=== PATIENT | female | born 1950 | race Caucasian/White ===

== ENCOUNTER → 2022-09-17 13:02 | Outpatient (BNVA) | payer OTHER, SELFPAY | PROVIDERS: PCP Family Medicine; Visit Provider Student in an Organized Health Care Education/Training Program | DX: M35.3 Polymyalgia rheumatica (principal); M85.89 Other specified disorders of bone density and structure, multiple sites | CPT/HCPCS: 99202 ==

== ENCOUNTER → 2022-11-19 11:13 | Outpatient (BNVA) | payer OTHER, SELFPAY | PROVIDERS: PCP Family Medicine; Visit Provider Student in an Organized Health Care Education/Training Program | DX: M35.3 Polymyalgia rheumatica (principal); M85.89 Other specified disorders of bone density and structure, multiple sites; E11.9 Type 2 diabetes mellitus without complications | CPT/HCPCS: 99212 ==

== ENCOUNTER 2023-04-05 15:42 | Outpatient (AMB) | payer OTHER, SELFPAY ==
[2023-04-05 15:46] VITALS: BP 114/62; PULSE 77; TEMP 36.5; O2SAT 98; BMI 27.2
--- NOTE | 2023-04-05 15:46 | A.OFFVIS_ITS ---
Intake Vital Signs 04/05/23 15:46 Height 5 ft 4.5 in Weight 160 lb 11.472 oz BMI 27.2 BP 114/62 Blood Pressure Location Rt brachial Position Sitting Pulse 77 Pulse Source Pulse Oximeter Temp 97.7 F Temp Source Skin Pulse Oximetry (%) 98 Intake Visit Reasons: PMR Intake Note: Pt seen today for PMR follow up, states PMR in remission, c/o bl hand stiffness and swelling. Ecological Economist Required: No Accompanied by: Self / Same As Patient Allergies zoster vaccine live [From Zostavax (PF)] Allergy (Intermediate, Verified 04/05/23 15:48) redness,swelling Medication List - Last Reconciled 04/05/23 by Teri Ospina MD acetaminophen (Tylenol Extra Strength) 500 mg PO Q6H PRN alendronate 70 mg PO QWEEK atorvastatin 10 mg PO DAILY cholecalciferol (vitamin D3) 25 mcg PO DAILY losartan 25 mg PO DAILY metformin ER 500 mg PO DAILY pyridoxine (vitamin B6) 50 mg PO DAILY triamterene-hydrochlorothiazid 37.5-25 mg 1 cap PO DAILY HPI HPI Comments History of Present Illness Details 72-year-old female with PMR returns for follow-up. She has tapered her prednisone by 1 mg every month to off. Prednisone course has been completed by the end of January 2023. She has no recurrence of PMR symptoms. Over the last 1-2 months she has been having difficulty in bending her right thumb. She also gets pain in both knees when she stands up after sitting down. Initial history: This is a 72-year-old female with a past medical history of hypertension, dyslipidemia, migraines who presents for evaluation of polymyalgia rheumatica. The condition started around [place] time of 2020 with the patient noticing bilateral knee, hips pain and stiffness. She was eventually evaluated by her PCP and her labs showed high inflammatory markers she was referred to dam attendant Dr. Patel and was started on prednisone 20 mg her prednisone was slowly tapered down until 10 mg daily and then he was tapered by 1 mg every month. She is currently on 6 mg of prednisone daily. Patient reports significant improvement in her overall symptoms. She denies any joint pain or stiffness today. Patient also states that she had a bone density scan which showed osteopenia and she was started on alendronate by her PCP. Patient also mentions that she has a long history of ocular migraines which are usually worse in the summer. Last episode was in July. She denies any new headaches. She is aware of joint cell arthritis symptoms and she denies having any symptoms suggestive of it, such as new headaches, blurry vision, fevers, fatigue. [facility] Medical History Adjustment disorder with mixed emotional features Astigmatism CTS (carpal tunnel syndrome) Hearing loss Hypertension Impaired fasting glucose Migraine Mixed hyperlipidemia Myopia Osteopenia Presbyopia Surgical History H/O stapedectomy History of carpal tunnel surgery History of decompression of median nerve Family History Sister Hx of CABG Atrial fibrillation Son Heart disease Father Myocardial infarct Mother Osteopenia Social History Household Members: Spouse Alcohol intake: never Patient Tobacco Use Status: Never used Tobacco Current occupational status: employed 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 Review of Systems [facility] [place] Reports arthralgias, Reports joint swelling, Reports limited range of motion and Reports stiffness Physical Exam Vital Signs: Last Vital Signs Temp 97.7 F 04/05/23 15:46 Pulse 77 04/05/23 15:46 BP 114/62 04/05/23 15:46 Pulse Ox 98 04/05/23 15:46 BMI result Body Mass Index 27.2 Const General: cooperative, healthy appearing, comfortable and no acute distress Nutritional Appearance: average body habitus Orientation/consciousness: patient oriented x3 Limitations: no limitations HEENT Other: No temporal area tenderness Head: Yes normocephalic and Yes atraumatic Mouth: moist mucous membranes Resp Effort & Inspection: normal respiratory effort and able to speak in complete sentences Auscultation: clear to auscultation bilaterally Cardio Rate: regular rate Rhythm: regular rhythm GI Inspection: No distended Palpation (GI): Soft to palpation and nontender Skin General skin exam: no rashes or lesions noted Neuro General: patient oriented x3 Extrem Other: Mild osteoarthritic changes of both hands Right 1st MCP joint swelling and tenderness Significantly limited right thumb IP flexion Normalr range of motion of both shoulders Normal range of motion of both knees without pain. Bilateral knee crepitus Results Reviewed Results Reviewed: Labs from December of 2021 RF/CCP/TEN all negative Upper limit of normal of CRP at this lab is 9 Labs in November 2021 CRP 20.4 sed rate 30 Labs December 2021: CRP 51, ESR 37 Labs May 2022 CRP <2, sed rate normal Labs 09/10/2022 : CRP 11 sed rate 10 Labs 11/16/2022? CBC unremarkable? ESR 9? CRP <2.0 (0-9.0) CMP unremarkable except for glucose 173 HB A1c 8.8% Assessment & Plan Assessment & Plan (1) PMR (polymyalgia rheumatica): Comment: Symptoms started and 08/2021 Diagnosed 11/2021 started on PDN. PDN tapered off 03/11 with no recurrence Code(s): M35.3 - Polymyalgia rheumatica Plan: This is a 72-year-old female presents for evaluation of polymyalgia rheumatica. Symptoms started in August 2021, bilateral knee and hips pain and stiffness, diagnosed in November 2021 with significantly elevated CRP and mildly elevated sed rate started on prednisone 20 mg daily with dramatic response. Prednisone has been slowly tapered to off 03/11 with no PMR recurrence. Patient has normal inflammatory markers. Follow-up in 5 months. Advised patient to call the office if she has recurrent PMR symptoms (2) Osteopenia: Code(s): M85.80 - Other specified disorders of bone density and structure, unspecified site Qualifiers: Osteopenia location: multiple sites Qualified Code(s): M85.89 - Other specified disorders of bone density and structure, multiple sites Plan: Was started on alendronate by PCP. Benadryl made is currently on hold due to GI symptoms (3) Trigger thumb, right thumb: Code(s): M65.311 - Trigger thumb, right thumb Plan: Likely trigger finger of right thumb. Advised patient to use [id number] Voltaren gel. She is not interested in occupational therapy. She states that she will consider consulting with her hand surgeon. (4) Bilateral primary osteoarthritis of knee: Code(s): M17.0 - Bilateral primary osteoarthritis of knee Plan: Mild, discussed conservative measures. Patient is not interested in formal physical therapy. I suggested applying Voltaren gel and doing quadriceps strengthening exercises at home. Plan I spent 32 minutes reviewing patient's chart, evaluating patient, ordering diagnostic workup, counseling patient and documenting in the chart Coding Level of Care Code Est Pt Level 4 (40543) Diagnoses PMR (polymyalgia rheumatica) M35.3 Osteopenia M85.89 Osteopenia location: multiple sites Trigger thumb, right thumb M65.311 Bilateral primary osteoarthritis of knee M17.0
== END 2023-04-05 16:15 | disposition home or self-care (01) ==
PROVIDERS: PCP Family Medicine; Visit Provider Student in an Organized Health Care Education/Training Program
DX: M35.3 Polymyalgia rheumatica (principal); M85.89 Other specified disorders of bone density and structure, multiple sites; M65.311 Trigger thumb, right thumb; M17.0 Bilateral primary osteoarthritis of knee
CPT/HCPCS: 99214

== ENCOUNTER → 2023-04-05 15:42 | Outpatient (BNVA) | payer OTHER, SELFPAY | PROVIDERS: PCP Family Medicine; Visit Provider Student in an Organized Health Care Education/Training Program | DX: M35.3 Polymyalgia rheumatica (principal); M17.0 Bilateral primary osteoarthritis of knee; M85.89 Other specified disorders of bone density and structure, multiple sites; M65.311 Trigger thumb, right thumb | CPT/HCPCS: 99212 ==

== ENCOUNTER 2023-08-30 14:23 | Outpatient (AMB) | payer OTHER, SELFPAY ==
--- NOTE | 2023-08-30 14:32 | MHC.OFFVIS ---
Intake Vital Signs 08/30/23 14:37 Height 5 ft 4.5 in Weight 149 lb 11.102 oz BMI 25.3 BP 114/56 L Blood Pressure Location Rt brachial Position Sitting Pulse 92 Pulse Source Pulse Oximeter Temp 97 F Temp Source Skin Pulse Oximetry (%) 96 Oxygen Delivery Method Room Air Intake Visit Reasons: PMR Intake Note: Patient last seen 04/05/23, presents today for follow up. Reports brenden knee clicking and neck clicking. Animal Control Supervisor Required: No Accompanied by: Self / Same As Patient Allergies zoster vaccine live [From Zostavax (PF)] Allergy (Intermediate, Verified 08/30/23 14:37) redness,swelling Medication List - Last Reconciled 08/30/23 by Teri Ospina MD acetaminophen (Tylenol Extra Strength) 500 mg PO Q6H PRN atorvastatin 10 mg PO DAILY cholecalciferol (vitamin D3) 25 mcg PO DAILY losartan 25 mg PO DAILY magnesium 200 mg PO DAILY metformin ER 500 mg PO DAILY pyridoxine (vitamin B6) 50 mg PO DAILY triamterene-hydrochlorothiazid 37.5-25 mg 1 cap PO DAILY zinc acetate 25 mg PO DAILY HPI HPI Comments History of Present Illness Details 73-year-old female with PMR returns for follow-up. She continues to do well off prednisone since 02/2023. She has not had any recurrence of PMR symptoms. She has been having some neck cracking without pain. She would have some neck pain, upper back pain and stiffness after a long day, she uses a heating pad on her neck which helps. She also has some stiffness of her knees specially when standing up after sitting down for some time. She takes a Tylenol every once in a while as needed for her generalized arthritic pains. Has been having some triggering of her right thumb but it is not particularly symptomatic. She has been following weight watchers for diabetics and has lost 11 lb since last visit. Initial history: This is a 72-year-old female with a past medical history of hypertension, dyslipidemia, migraines who presents for evaluation of polymyalgia rheumatica. The condition started around [place] time of 2020 with the patient noticing bilateral knee, hips pain and stiffness. She was eventually evaluated by her PCP and her labs showed high inflammatory markers she was referred to band top maker Dr. Patel and was started on prednisone 20 mg her prednisone was slowly tapered down until 10 mg daily and then he was tapered by 1 mg every month. She is currently on 6 mg of prednisone daily. Patient reports significant improvement in her overall symptoms. She denies any joint pain or stiffness today. Patient also states that she had a bone density scan which showed osteopenia and she was started on alendronate by her PCP. Patient also mentions that she has a long history of ocular migraines which are usually worse in the summer. Last episode was in July. She denies any new headaches. She is aware of joint cell arthritis symptoms and she denies having any symptoms suggestive of it, such as new headaches, blurry vision, fevers, fatigue. [facility] Medical History Hearing loss Astigmatism Myopia Adjustment disorder with mixed emotional features Presbyopia Impaired fasting glucose Migraine Mixed hyperlipidemia Hypertension CTS (carpal tunnel syndrome) Osteopenia Surgical History History of carpal tunnel surgery H/O stapedectomy History of decompression of median nerve Family History Sister Hx of CABG Atrial fibrillation Son Heart disease Father Myocardial infarct Mother Osteopenia Social History Household Members: Spouse Alcohol intake: never Patient Tobacco Use Status: Never used Tobacco Current occupational status: employed 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 Review of Systems [facility] [place] Reports arthralgias and Reports stiffness Physical Exam Vital Signs: Last Vital Signs Temp 97 F 08/30/23 14:37 Pulse 92 08/30/23 14:37 BP 114/56 L 08/30/23 14:37 Pulse Ox 96 08/30/23 14:37 Oxygen Delivery Method Room Air 08/30/23 14:37 BMI result Body Mass Index 25.3 Const General: cooperative, healthy appearing, comfortable and no acute distress Nutritional Appearance: average body habitus Orientation/consciousness: patient oriented x3 Limitations: no limitations HEENT Other: No temporal area tenderness Head: Yes normocephalic and Yes atraumatic Mouth: moist mucous membranes Resp Effort & Inspection: normal respiratory effort and able to speak in complete sentences Auscultation: clear to auscultation bilaterally Cardio Rate: regular rate Rhythm: regular rhythm GI Inspection: No distended Palpation (GI): Soft to palpation and nontender Skin General skin exam: no rashes or lesions noted Neuro General: patient oriented x3 Extrem Other: Mild osteoarthritic changes of both hands Right 1st MCP joint swelling and tenderness Significantly limited right thumb IP flexion Normalr range of motion of both shoulders Normal range of motion of both knees without pain. Bilateral knee crepitus Results Reviewed Results Reviewed: Labs from December of 2021 RF/CCP/TEN all negative Upper limit of normal of CRP at this lab is 9 Labs in November 2021 CRP 20.4 sed rate 30 Labs December 2021: CRP 51, ESR 37 Labs May 2022 CRP <2, sed rate normal Labs 09/10/2022 : CRP 11 sed rate 10 Labs 11/16/2022? CBC unremarkable? ESR 9? CRP <2.0 (0-9.0) CMP unremarkable except for glucose 173 HB A1c 8.8% Assessment & Plan Assessment & Plan (1) PMR (polymyalgia rheumatica): Comment: Symptoms started and 08/2021 Diagnosed 11/2021 started on PDN. PDN tapered off 03/11 with no recurrence Code(s): M35.3 - Polymyalgia rheumatica Plan: This is a 73-year-old female presents for evaluation of polymyalgia rheumatica. Symptoms started in August 2021, bilateral knee and hips pain and stiffness, diagnosed in November 2021 with significantly elevated CRP and mildly elevated sed rate started on prednisone 20 mg daily with dramatic response. Prednisone has been slowly tapered off 03/11 with no PMR recurrence. Upon evaluation today has no inflammatory symptoms. Follow-up in months. Advised patient to call the office if she has recurrent PMR symptoms (2) Trigger thumb, right thumb: Code(s): M65.311 - Trigger thumb, right thumb Plan: trigger finger of right thumb. Not particularly symptomatic currently. She will follow-up with her hand surgeon as knees (3) Bilateral primary osteoarthritis of knee: Code(s): M17.0 - Bilateral primary osteoarthritis of knee Plan: Mild, discussed conservative measures. Patient is not interested in formal physical therapy. She does quadriceps strengthening exercises at home and takes Tylenol every once in a while. Plan I spent 22 minutes reviewing patient's chart, evaluating patient, counseling patient and documenting in the chart Coding Level of Care Code Est Pt Level 4 (89749) Diagnoses PMR (polymyalgia rheumatica) M35.3 Trigger thumb, right thumb M65.311 Bilateral primary osteoarthritis of knee M17.0
[2023-08-30 14:37] VITALS: BP 114/56; PULSE 92; TEMP 36.1; O2SAT 96; BMI 25.3
== END 2023-08-30 14:53 | disposition home or self-care (01) ==
PROVIDERS: PCP Family Medicine; Visit Provider Student in an Organized Health Care Education/Training Program
DX: M35.3 Polymyalgia rheumatica (principal); M65.311 Trigger thumb, right thumb; M17.0 Bilateral primary osteoarthritis of knee
CPT/HCPCS: 99214

== ENCOUNTER → 2023-08-30 14:23 | Outpatient (BNVA) | payer OTHER, SELFPAY | PROVIDERS: PCP Family Medicine; Visit Provider Student in an Organized Health Care Education/Training Program | DX: M35.3 Polymyalgia rheumatica (principal); M65.311 Trigger thumb, right thumb; M17.0 Bilateral primary osteoarthritis of knee | CPT/HCPCS: 99212 ==

== ENCOUNTER 2024-02-29 14:51 | Outpatient (AMB) | payer OTHER, SELFPAY ==
[2024-02-29 14:53] VITALS: BP 112/58; PULSE 76; O2SAT 97; BMI 26.0
--- NOTE | 2024-02-29 14:53 | A.OFFVIS_ITS ---
Vital Signs 02/29/24 14:53 Height 5 ft 4.5 in Weight 153 lb 10.595 oz BMI 26.0 BP 112/58 L Blood Pressure Location Rt brachial Position Sitting Pulse 76 Pulse Source Pulse Oximeter Pulse Oximetry (%) 97 Oxygen Delivery Method Room Air Intake Visit Reasons: PMR Intake Note: Patient last seen 08/30/23, presents today for PMR follow up. Vp Of Marketing Required: No Accompanied by: Self / Same As Patient Allergies zoster vaccine live [From Zostavax (PF)] Allergy (Intermediate, Verified 15:00) redness,swelling Medication List - Last Reconciled 02/29/24 by Teri Ospina MD acetaminophen (Tylenol Extra Strength) 500 mg PO Q6H PRN atorvastatin 10 mg PO DAILY cholecalciferol (vitamin D3) 25 mcg PO DAILY losartan 25 mg PO DAILY magnesium 200 mg PO DAILY metformin ER 500 mg PO DAILY pyridoxine (vitamin B6) 50 mg PO DAILY triamterene-hydrochlorothiazid 37.5-25 mg 1 cap PO DAILY zinc acetate 25 mg PO DAILY HPI Comments Details: 73-year-old female with PMR returns for follow-up. She continues to do well off prednisone since 02/2023. She has not had any recurrence of PMR symptoms. She gets intermittent right-sided neck pain with certain movements. She rarely uses Tylenol or Advil as needed. Her knee pain has improved spontaneously. Initial history: This is a 72-year-old female with a past medical history of hypertension, dyslipidemia, migraines who presents for evaluation of polymyalgia rheumatica. The condition started around [place] time of 2020 with the patient noticing bilateral knee, hips pain and stiffness. She was eventually evaluated by her PCP and her labs showed high inflammatory markers she was referred to well service floor worker Dr. Patel and was started on prednisone 20 mg her prednisone was slowly tapered down until 10 mg daily and then he was tapered by 1 mg every month. She is currently on 6 mg of prednisone daily. Patient reports significant improvement in her overall symptoms. She denies any joint pain or stiffness today. Patient also states that she had a bone density scan which showed osteopenia and she was started on alendronate by her PCP. Patient also mentions that she has a long history of ocular migraines which are usually worse in the summer. Last episode was in July. She denies any new headaches. She is aware of joint cell arthritis symptoms and she denies having any symptoms suggestive of it, such as new headaches, blurry vision, fevers, fatigue. [facility] Medical History Hearing loss Astigmatism Myopia Adjustment disorder with mixed emotional features Presbyopia Impaired fasting glucose Migraine Mixed hyperlipidemia Hypertension CTS (carpal tunnel syndrome) Osteopenia Surgical History History of carpal tunnel surgery H/O stapedectomy History of decompression of median nerve Family History Sister Hx of CABG Atrial fibrillation Son Heart disease Father Myocardial infarct Mother Osteopenia Social History Household Members: Spouse Alcohol intake: never Patient Tobacco Use Status: Never used Tobacco Current occupational status: employed 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 Review of Systems [facility] Reports neck pain Musc Reports neck pain Physical Exam Vital Signs: Last Vital Signs Pulse 76 02/29/24 14:53 BP 112/58 L 02/29/24 14:53 Pulse Ox 97 02/29/24 14:53 Oxygen Delivery Method Room Air 02/29/24 14:53 BMI result Body Mass Index 26.0 Const General: cooperative, healthy appearing, comfortable and no acute distress Nutritional Appearance: average body habitus Orientation/consciousness: patient oriented x3 Limitations: no limitations HEENT Other: No temporal area tenderness Head: Yes normocephalic and Yes atraumatic Mouth: moist mucous membranes Resp Effort & Inspection: normal respiratory effort and able to speak in complete sentences Auscultation: clear to auscultation bilaterally Cardio Rate: regular rate Rhythm: regular rhythm GI Inspection: No distended Palpation (GI): Soft to palpation and nontender Skin General skin exam: no rashes or lesions noted Neuro General: patient oriented x3 Extrem Other: Mild osteoarthritic changes of both hands No active synovitis Muscle wasting of left thenar eminence Normalr range of motion of both shoulders Normal range of motion of both knees without pain. Bilateral knee crepitus Results Reviewed Results Reviewed: Labs from December of 2021 RF/CCP/TEN all negative Upper limit of normal of CRP at this lab is 9 Labs in November 2021 CRP 20.4 sed rate 30 Labs December 2021: CRP 51, ESR 37 Labs May 2022 CRP <2, sed rate normal Labs 09/10/2022 : CRP 11 sed rate 10 Labs 11/16/2022? CBC unremarkable? ESR 9? CRP <2.0 (0-9.0) CMP unremarkable except for glucose 173 HB A1c 8.8% Assessment & Plan Assessment & Plan (1) PMR (polymyalgia rheumatica): Comment: Symptoms started and 08/2021 Diagnosed 11/2021 started on PDN. PDN tapered off 03/11 with no recurrence Code(s): M35.3 - Polymyalgia rheumatica Category: Medical Plan: This is a 73-year-old female presents for evaluation of polymyalgia rheumatica. Symptoms started in August 2021, bilateral knee and hips pain and stiffness, diagnosed in November 2021 with significantly elevated CRP and mildly elevated sed rate started on prednisone 20 mg daily with dramatic response. Prednisone has been slowly tapered off 03/11 with no PMR recurrence. Upon evaluation today has no inflammatory symptoms. Patient has been in remission for a year off prednisone. At this point, patient to follow-up as needed. Call us if she develops recurrence of her PMR symptoms (2) Trigger thumb, right thumb: Code(s): M65.311 - Trigger thumb, right thumb Category: Medical Plan: trigger finger of right thumb. Not particularly symptomatic currently. She will follow-up with her hand surgeon as needed (3) Degenerative cervical disc: Code(s): M50.30 - Other cervical disc degeneration, unspecified cervical region Category: Medical Plan: Minimal episodes of neck pain, with certain movements no radiculopathy symptoms, likely some muscle spasm as well. Symptoms improved with pad, rare use of Tylenol or Advil. (4) Skin lesion of face: Code(s): L98.9 - Disorder of the skin and subcutaneous tissue, unspecified Category: Medical Plan: Patient mentioned that she had a skin lesion in the left temporal area in front of her left tragus. There was suspicion of a precancerous lesion by her PCP and she was referred to Dermatology. She has an appointment in May. On exam today it looks like the lesion has since resolved spontaneously. Plan I spent 26 minutes reviewing patient's chart, evaluating patient, counseling patient and documenting in the chart Coding Level of Care Code Est Pt Level 4 (25597) Diagnoses PMR (polymyalgia rheumatica) M35.3 Trigger thumb, right thumb M65.311 Degenerative cervical disc M50.30 Skin lesion of face L98.9
== END 2024-02-29 15:12 | disposition home or self-care (01) ==
PROVIDERS: PCP Family Medicine; Visit Provider Student in an Organized Health Care Education/Training Program
DX: M35.3 Polymyalgia rheumatica (principal); M65.311 Trigger thumb, right thumb; M50.30 Other cervical disc degeneration, unspecified cervical region; L98.9 Disorder of the skin and subcutaneous tissue, unspecified
CPT/HCPCS: 99214

== ENCOUNTER → 2024-02-29 14:51 | Outpatient (BNVA) | payer OTHER, SELFPAY | PROVIDERS: PCP Family Medicine; Visit Provider Student in an Organized Health Care Education/Training Program | DX: M35.3 Polymyalgia rheumatica (principal); M50.30 Other cervical disc degeneration, unspecified cervical region; M65.311 Trigger thumb, right thumb; L98.9 Disorder of the skin and subcutaneous tissue, unspecified; Z79.52 Long term (current) use of systemic steroids | CPT/HCPCS: 99212 ==